=== PATIENT | male | born 1975 | race Hispanic/Latino ===

== ENCOUNTER 2024-01-12 21:58 | Emergency (ER) | payer OTHER ==
[~2024-01-12] VITALS: Ht 167.6 cm; Wt 89.8 kg
--- NOTE | 2024-01-12 22:07 | NUR ---
TRAUMA LEVEL 2 CALLED OVERHEAD AT 2207 TO ROOM EIGHT.
[2024-01-12] MEDS ORDERED: IOHEXOL-350 75 ML VIAL IV ONE (22:11)
[2024-01-12 22:25] LABS: BASOPHILS # (AUTO) 0.04 K/uL (0.00-0.20); BASOPHILS % (AUTO) 0.5 % (0.0-5.0); EOSINOPHILS # (AUTO) 0.16 K/uL (0.00-0.70); EOSINOPHILS % (AUTO) 2.2 % (0.0-8.0); HEMATOCRIT 41.3 % (42-54); IMMATURE GRANULOCYTE ABSOLUTE 0.04 K/uL (0-1); LYMPHOCYTES # (AUTO) 2.7 K/uL (1.0-4.8); LYMPHOCYTES % (AUTO) 36.4 % (21.0-51.0); MEAN CORPUSCULAR HEMOGLOBIN 30.3 pg (27.0-33.0); MEAN CORPUSCULAR HGB CONC 34.4 g/dL (32.0-36.0); MEAN CORPUSCULAR VOLUME 88.1 fL (79-99); MONOCYTES # (AUTO) 0.8 K/uL (0.1-1.0); MONOCYTES % (AUTO) 10.8 % (3.0-13.0); NEUTROPHILS # (AUTO) 3.6 K/uL (1.8-7.7); NEUTROPHILS % (AUTO) 49.6 % (40.0-77.0); PLATELET COUNT (AUTO) 259 K/uL (130-400); RED BLOOD CELL COUNT(AUTO) 4.69 MIL/uL (4.50-6.20); RED CELL DISTRIBUTION WIDTH 12.2 % (11.0-15.5); WHITE BLOOD COUNT (AUTO) 7.3 K/uL (4.8-10.8)
--- NOTE | 2024-01-12 22:26 | NUR ---
TO CT AT THIS TIME.
--- NOTE | 2024-01-12 22:27 | NUR ---
PATIENT TRANSPORTED TO CT
[2024-01-12 22:33] LABS: CREATININE 1.1 mg/dL (0.5-1.3); POTASSIUM 3.2 mmol/L (3.5-5.1)
[2024-01-12 22:36] LABS: INR 0.97 (0.85-1.15); PROTHROMBIN TIME 10.5 SEC (9.6-11.6)
[2024-01-12 22:37] LABS: PARTIAL THROMBOPLASTIN TIME 24.6 SEC (26.3-35.5)
--- NOTE | 2024-01-12 22:38 | NUR ---
PATIENT TRANSPORTED BACK FROM CT
--- NOTE | 2024-01-12 22:43 | NUR ---
BACK FROM CT
[2024-01-12] MEDS: ondanSETRON 4MG INJ IVP ONE (22:49)
[2024-01-12] MEDS: hydroMORPHone 1 MG INJ IVP ONE (22:50)
[2024-01-12] MEDS: teTANUS/diphthERIA TOXOID [ADULT] 0.5 ML VIAL IM ONE (22:50)
[2024-01-12] MEDS: 0.9%NACL 1000ML 1,000 ML IV ONE (22:50)
[2024-01-12] MEDS: CLINDAMYCIN IVPB 300MG/50ML 50 ML IV SCH (22:51)
--- NOTE | 2024-01-12 22:53 | HMCIMG ---
CT HEAD/BRAIN W/O CONTRAST HISTORY: Status post fall COMPARISON: None TECHNIQUE: Multiple sequential axial images of the head were obtained from the base of the skull through vertex. Patient was not given contrast through intravenous route. FINDINGS: The ventricles and extraventricular CSF spaces are nondilated for patient's age. There is no midline shift, mass effect or herniation. No acute intracranial bleed is seen. There are bilateral ethmoid and maxillary sinusitis worse in the right maxillary sinus. IMPRESSION: 1. No acute intracranial bleed is seen. Sinusitis. CT was performed with one or more following dose reduction techniques: automated exposure control, adjustment of the mA and kv according to patient's size, or use of a iterative reconstruction technique.
--- NOTE | 2024-01-12 22:58 | HMCIMG ---
CT CERVICAL SPINE W/O CONTRAST HISTORY: Status post fall COMPARISON: None TECHNIQUE: Multiple sequential axial images of the cervical spine were obtained including post processing sagittal and coronal reconstruction images. Patient was not given contrast through intravenous route. FINDINGS: There are degenerative changes with cervical spine spondylosis. Disc space narrowings are seen at C5-6 and C6-7 levels. There is straightening of normal lordotic cervical curvature which may be related to muscle spasm or positioning. There is no loss of vertebral height. Evaluation for disc and cord pathology is limited with CT study. No evidence of fracture or dislocation is seen. There is right maxillary sinus disease. IMPRESSION: 1. No fracture is seen. DJD. CT was performed with one or more following dose reduction techniques: automated exposure control, adjustment of the mA and kv according to patient's size, or use of a iterative reconstruction technique.
--- NOTE | 2024-01-12 22:59 | ERN ---
General Chief Complaint: Laceration/Avulsion Stated Complaint: C/O LACERATION TO FACE Time Seen by MD: 22:01 History of Present Illness Initial Comments Mr. Yoder is a very pleasant 48-year-old male who presents today with a facial laceration. History is very cloudy but apparently the patient fell onto a wooden bench in his home. Patient reports that he suffered an injury to his right near and right face. Patient does have appears to be an avulsion laceration over his face patient reports that he did not lose consciousness. Denies any other symptomatology. Allergies: Coded Allergies: No Known Drug Allergies (Unverified Allergy, Unknown, 01/12/24) Past Medical History Past Medical History: No Pertinent History Past Surgical History: None ROS Dictation Constitutional: Negative for fever,chills, and weight loss Eyes: Negative for injury, pain,redness, and discharge ENT: Facial laceration Cardiovascular: Negative for chest pain, palpitations, and edema Respiratory: Negative for shortness of breath, cough, and wheezing, Abdomen/GI: Negative for abdominal pain, nausea, vomiting, diarrhea, and constipation Back: Negative for injury and pain : Negative for injury, bleeding and discharge MS/Extremity: Negative for injury and deformity Skin: Right facial laceration Neuro: Negative for headache, weakness, numbness, tingling, and seizure Psych: Negative for suicide ideation, homicidal ideation, and hallucinations Physical Exam Physical Exam Dictation General: awake, alert, NAD Head/Face: Normocephalic, atraumatic Eyes: PERRL, EOMI ENT: Patient appears to have right nasal avulsion with laceration. Patient does have difficulty breathing through his nose does have connective tissue from his mandible exposed Neck: Trachea midline, supple Cardiovascular: RRR, normal S1/S2 Respiratory: CTAB, no respiratory distress, Abdomen: Soft, non-tender, non-distended, normal bowel sounds, no guarding or r ebound. Skin: Warm, dry, normal turgor, no rash MS/Extremity: Right facial laceration Neuro: COAx4, GCS 15, strength 5/5, CN 2-12 intact Psych: Normal behavior, mood, and affect normal Results Laboratory and Microbiology Lab and Micro Result Laboratory Tests Test 01/12/24 22:15 White Blood Count 7.3 K/uL (4.8-10.8) Red Blood Count 4.69 MIL/uL (4.50-6.20) Hemoglobin 14.2 g/dL (14.0-18.0) Hematocrit 41.3 % (42-54) L Mean Corpuscular Volume 88.1 fL (79-99) Mean Corpuscular Hemoglobin 30.3 pg (27.0-33.0) Mean Corpuscular Hemoglobin Concent 34.4 g/dL (32.0-36.0) Red Cell Distribution Width 12.2 % (11.0-15.5) Platelet Count 259 K/uL (130-400) Mean Platelet Volume 9.2 fL (7.5-10.5) Immature Granulocyte % (Auto) 0.5 % (0-1) Neutrophils (%) (Auto) 49.6 % (40.0-77.0) Lymphocytes (%) (Auto) 36.4 % (21.0-51.0) Monocytes (%) (Auto) 10.8 % (3.0-13.0) Eosinophils (%) (Auto) 2.2 % (0.0-8.0) Basophils (%) (Auto) 0.5 % (0.0-5.0) Neutrophils # (Auto) 3.6 K/uL (1.8-7.7) Lymphocytes # (Auto) 2.7 K/uL (1.0-4.8) Monocytes # (Auto) 0.8 K/uL (0.1-1.0) Eosinophils # (Auto) 0.16 K/uL (0.00-0.70) Basophils # (Auto) 0.04 K/uL (0.00-0.20) Absolute Immature Granulocyte (auto 0.04 K/uL (0-1) Nucleated Red Blood Cells 0.0 % (0.0-0.19) Prothrombin Time 10.5 SEC (9.6-11.6) Prothromb Time International Ratio 0.97 (0.85-1.15) Activated Partial Thromboplast Time 24.6 SEC (26.3-35.5) L Sodium Level 139 mmol/L (136-145) Potassium Level 3.2 mmol/L (3.5-5.1) L Chloride Level 102 mmol/L (101-111) Carbon Dioxide Level 30 mmol/L (21-32) Blood Urea Nitrogen 14 mg/dL (7-18) Creatinine 1.1 mg/dL (0.5-1.3) Glomerular Filtration Rate Calc 82 mL/min (>90) Random Glucose 122 mg/dL (70-105) H Total Calcium 8.7 mg/dL (8.5-10.1) MDM Patient appears to have multiple nasal fractures as well as large laceration over the right Aceves which is impairing his breathing. I have spoken with trauma surgeon at [facility] who has agreed to accept the patient for evaluation. MDM: Differential diagnosis: Nasal fractures, avulsion laceration Rationale: Tests considered and ordered secondary to shared decision making include: Previous outside records reviewed: Old ER visits. Risk of complication and/or morbidity or mortality of patient management: None Medications-Per medication reconciliation Need for hospitalization: Patient does not meet criteria for hospitalization. Need for emergency major/minor surgery: No There are no social concerns with this patient. Prescription drug management Prescriptions will include symptomatic care Patient's prior external medical records from other ER visits were reviewed by me as indicated. Prior testing and results from previous visits were reviewed. Prior tests were taken into account with medical decision making and resource utilization, independent historian/historians were used to obtain complete medical history. I independently interpreted the test that were performed, results were reviewed by me and considered findings on radiology if ordered. Medical management and examination interpretation discussions were had by me with other qualified healthcare professionals as indicated for the patient's care. ED Course Orders Procedure Category Date Status Time Ct Maxillofacial CT 01/12/24 Resulted W/Contrast 22:03 Ct Head/Brain W/O CT 01/12/24 Resulted Contrast 22:03 Cbc With Differential LAB 01/12/24 Complete 22:06 Basic Metabolic Panel LAB 01/12/24 Complete 22:06 Pt And Ptt LAB 01/12/24 Complete 22:06 Ct Cervical Spine W/O CT 01/12/24 Resulted Contrast 22:08 Iohexol (Omnipaque) PHA 01/12/24 Complete 22:11 Clindamycin Ivpb PHA 01/12/24 In Process 300mg/50ml (Cleocin 22:30 Hydromorphone 1 Mg PHA 01/12/24 Complete Inj (Dilaudid 1mg Inj 22:30 0.9%Nacl 1000ml (Ns PHA 01/12/24 Complete 1000ml) 22:30 Ondansetron 4mg Inj PHA 01/12/24 Complete (Zofran 4mg Inj) 22:30 Tetanus,Diphtheria PHA 01/12/24 Complete Tox [Adult] (Diphther 22:30 Current Medications Medications (Trade) Dose Ordered Sig/Daya Route PRN Reason Start Time Stop Time Status Last Admin Dose Admin Clindamycin HCl/ Dextrose 50 ml @ 100 mls/hr Q8H IV 01/12/24 22:30 01/22/24 22:29 01/12/24 22:51 Hydromorphone HCl (DiLAUDid 1MG INJ) 1 mg ONCE ONCE IVP 01/12/24 22:30 01/12/24 22:31 DC 01/12/24 22:50 Iohexol (Omnipaque) 75 ml STK-MED ONCE IV 01/12/24 22:11 01/12/24 22:11 DC Ondansetron HCl (zoFRAN 4MG INJ) 4 mg ONCE ONCE IVP 01/12/24 22:30 01/12/24 22:31 DC 01/12/24 22:49 Sodium Chloride 1,000 ml @ 0 mls/hr Q0M ONCE IV 01/12/24 22:30 01/12/24 22:31 DC 01/12/24 22:50 Tetanus/ Diphtheria Toxoids Adsorbed (DiphthERIA-teTANUS TOXOID [ADULT]/ DECAVAC) 0.5 ml ONCE ONCE IM 01/12/24 22:30 01/12/24 22:31 DC 01/12/24 22:50 Vital Signs Date Time Temp Pulse Resp B/P (MAP) Pulse Ox O2 Delivery O2 Flow Rate FiO2 01/12/24 22:01 98.8 97 20 142/78 99 Room Air DX & DISP Disposition: Transfer Departure Impression: Primary Impression: Nasal bone fracture Additional Impression: Face lacerations Condition: Stable Referrals: SELF,REFERRAL (PCP) FERMIN LAI MD Jan 12, 2024 22:59
--- NOTE | 2024-01-12 23:05 | HMCIMG ---
CT MAXILLOFACIAL W/CONTRAST HISTORY: Status post fall COMPARISON: None TECHNIQUE: Multiple sequential high-resolution axial images of the paranasal sinuses were obtained. Postprocessing sagittal and coronal reconstruction images were also obtained. Patient was given 75 cc of Omnipaquethrough intravenous route. FINDINGS: Nasal septum is mildly deviated towards right There is no evidence of mucoperiosteal thickening involving the paranasal sinuses. The infundibula are patent bilaterally. Common liver fractures are seen involving the nasal bones and nasal spine with adjacent soft tissue swelling. There is right inferior orbital wall fracture with depression. Right maxillary sinus disease is seen most likely related to blood product. There is no evidence of air-fluid level in the paranasal sinuses. Parapharyngeal fat planes are preserved bilaterally. IMPRESSION: 1. Common liver fractures are seen involving the nasal bones and nasal spine with adjacent soft tissue swelling. There is right inferior orbital wall fracture with depression. Right maxillary sinus disease is seen most likely related to blood product. CT was performed with one or more following dose reduction techniques: automated exposure control, adjustment of the mA and kv according to patient's size, or use of a iterative reconstruction technique.
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
[2024-01-13 01:49] VITALS: BP 125/86; PULSE 75; RESP 18; TEMP 98.4; O2SAT 98
--- NOTE | 2024-01-13 01:51 | NUR ---
REPORT CALLED TO [facility] ER, ELO PERSON.
== END 2024-01-13 02:08 | disposition short-term general hospital (02) ==
LOC: EDH 21:58 → EDBD 21:58 → EDH 01-13 02:08
DX: S02.2XXA Fracture of nasal bones, initial encounter for closed fracture (principal); S01.81XA Laceration without foreign body of other part of head, initial encounter; W18.39XA Other fall on same level, initial encounter; Y93.89 Activity, other specified; Y92.89 Other specified places as the place of occurrence of the external cause; Y99.8 Other external cause status
CPT/HCPCS: 99285; 70450; 96374; 96375; 80048; 85025; 85610; 85730; 36415; 90714; 70487; 72125; 90471; J1171; J7030; J2405; J3490; Q9967